=== PATIENT | female | born 1985 | race Two or more races ===

== ENCOUNTER 2018-07-28 09:05 | Emergency (ER) | payer OTHER ==
[2018-07-28 09:22] VITALS: BP 120/60; PULSE 60; TEMP 98; BMI 21.9
--- NOTE | 2018-07-28 09:40 | PDOC ---
History of Present Illness - General History Source: Patient Exam Limitations: No Limitations <Marcy Evangelista - Last Filed: 07/28/18 10:06> <Taylor Cage - Last Filed: 07/28/18 10:53> - General Chief Complaint: Headache Stated Complaint: HEADACHE Time Seen by Provider: 07/28/18 09:18 Past History - Past Medical History COPD: No CHF: No - Suicide/Smoking/Psychosocial Hx Smoking History: Never smoked Have you smoked in the past 12 months: No Information on smoking cessation initiated: No Hx Alcohol Use: No Drug/Substance Use Hx: No <Marcy Evangelista - Last Filed: 07/28/18 10:06> <Taylor Cage - Last Filed: 07/28/18 10:53> - Past Medical History Allergies/Adverse Reactions: Allergies Allergy/AdvReac Type Severity Reaction Status Date / Time ibuprofen [From Motrin] Allergy Intermediate Hives Verified 07/28/18 09:22 Penicillins Allergy Intermediate Hives Verified 07/28/18 09:22 Home Medications: Ambulatory Orders Acetaminophen W/ Codeine #3 [Tylenol # 3] 2 combo PO Q6H #15 tablet MDD 8 Silver Sulfadiazine 1% Top Cr [Silvadene -] 1 applic TP BID #1 jar 02/01/16 Fluticasone Prop 0.05% Nasal [Flonase -] 1 - 2 spray NS DAILY #1 spray.pump *Physical Exam - Vital Signs Last Vital Signs Temp Pulse Resp BP Pulse Ox 98 F 60 16 120/60 100 07/28/18 09:12 07/28/18 09:12 07/28/18 09:12 07/28/18 09:12 07/28/18 09:12 - Physical Exam General Appearance: No: Apparent Distress HEENT: positive: Pharynx Normal, Nasal Congestion (no purulent drainage noted), Sinus Tenderness (Along frontal sinus). negative: Muffled/Hoarse voice, Pharyngeal Erythema, Tonsillar Exudate, Tonsillar Erythema, Rhinorrhea Respiratory/Chest: positive: Lungs Clear, Normal Breath Sounds. negative: Respiratory Distress Cardiovascular: positive: Regular Rhythm, Regular Rate, S1, S2. negative: Murmur Gastrointestinal/Abdominal: positive: Normal Bowel Sounds, Soft. negative: Tender, Distended, Guarding, Rebound Extremity: positive: Other Neurologic: positive: Alert, Normal Mood/Affect <Marcy Evangelista - Last Filed: 07/28/18 10:06> - Vital Signs Last Vital Signs Temp Pulse Resp BP Pulse Ox 98 F 60 16 120/60 100 07/28/18 09:12 07/28/18 09:12 07/28/18 09:12 07/28/18 09:12 07/28/18 09:12 <Taylor Cage - Last Filed: 07/28/18 10:53> Moderate Sedation - Procedure Monitoring Vital Signs: Procedure Monitoring Vital Signs Temperature 98 F 07/28/18 09:12 Pulse Rate 60 07/28/18 09:12 Respiratory Rate 16 07/28/18 09:12 Blood Pressure 120/60 07/28/18 09:12 O2 Sat by Pulse Oximetry (%) 100 07/28/18 09:12 <Marcy Evangelista - Last Filed: 07/28/18 10:06> - Procedure Monitoring Vital Signs: Procedure Monitoring Vital Signs Temperature 98 F 07/28/18 09:12 Pulse Rate 60 07/28/18 09:12 Respiratory Rate 16 07/28/18 09:12 Blood Pressure 120/60 07/28/18 09:12 O2 Sat by Pulse Oximetry (%) 100 07/28/18 09:12 <Taylor Cage - Last Filed: 07/28/18 10:53> Medical Decision Making - Medical Decision Making 32 y/o F with no sig pmh presents with pressure-like GEORGE along frontal region along with green-yellow nasal discharge x 5 days along with some postnasal drip causing her to cough. Denies fever, sneezing, sob, cp, abd pain, n/v. Has not taken any antipyretics today Likely sinusitis Patient appears well - likely viral in nature Supportive care discussed Stable for dc 07/28/18 09:40 <Marcy Evangelista - Last Filed: 07/28/18 10:06> - Medical Decision Making The patient was seen and evaluated in conjunction with midlevel provider under my direct supervision, ancillary studies were reviewed. I agree with the plan as outlined by Marcy Evangelista. HPI, workup/dispo as outlined. pt evaluated, comfortable. NAD, EOMI, PERRL, some sinus tenderness to percussion. CN II-XII grossly intact. well appearing VS wnl, normotensive, afebrile. likely sinusitis x 5 days, no fever, mostly congestion and sinus george and viral etiology and time frame/clinical symptoms otc supportive care, analgesia and sudafed for the congestion, flonase for the nasal drip;/ pcp outpatient followup, DC in stable condition, return precautions. 07/28/18 10:51 07/28/18 10:52 <Taylor Cage - Last Filed: 07/28/18 10:53> *DC/Admit/Observation/Transfer - Discharge Dispostion Decision to Admit order: No <Marcy Evangelista - Last Filed: 07/28/18 10:06> <Taylor Cage - Last Filed: 07/28/18 10:53> Diagnosis at time of Disposition: Sinusitis Qualifiers: Sinusitis location: frontal Chronicity: acute Recurrence: non-recurrent Qualified Code(s): J01.10 - Acute frontal sinusitis, unspecified - Discharge Dispostion Disposition: HOME Condition at time of disposition: Stable - Prescriptions Prescriptions: Fluticasone Prop 0.05% Nasal [Flonase -] 1 - 2 spray NS DAILY #1 spray.pump - Referrals Referrals: ON STAFF,NOT [Primary Care Provider] - - Patient Instructions Printed Discharge Instructions: DI for Sinusitis Additional Instructions: Thank you for choosing [facility]. It was a pleasure taking care of you. Likely you have sinus infection Take Flonase nasal spray, but do not use for more than 1 week Also recommend saline nasal spray and Nedi-pot Sudafed can also help with congestion Follow-up with your PCP in 2 days If symptoms persist for more than 10 days, you may need antibiotics Return to the Emergency Department if your symptoms worsen or persist or have other concerning symptoms. - Post Discharge Activity
== END 2018-07-28 10:31 | disposition home or self-care (01) ==
LOC: JER 09:05
DX: J01.10 Acute frontal sinusitis, unspecified (principal)
CPT/HCPCS: 99281-25

== ENCOUNTER 2020-12-22 15:19 | Emergency (ER) | payer OTHER ==
[2020-12-22 15:32] VITALS: BP 103/68; PULSE 86; TEMP 98.4; BMI 21.0
[2020-12-22] MEDS ORDERED: valACYclovir HCL 1000 MG TABLET PO ONE (16:04)
== END 2020-12-23 07:05 | disposition home or self-care (01) ==
LOC: JERFT 15:19 → JER 15:19 → JERFT 12-23 07:05
DX: K11.5 Sialolithiasis (principal)
CPT/HCPCS: 99283-25